=== PATIENT | male | born 1965 | race Asian ===

== ENCOUNTER 2017-10-26 09:08 | Day surgery (SDC) | payer OTHER ==
[2017-10-26 09:36] VITALS: BMI 29.2
[2017-10-26 10:21] VITALS: TEMP 97.9
[2017-10-26 11:25] VITALS: BP 119/66; PULSE 80
--- NOTE | 2017-10-27 16:24 | PATH ---
Surgical Pathology Report Patient Name: ANA JESSICA [facility]. Rec. #: [id number] /Age/Gender: 1965 (Age: 51) / M Account: [id number] Location: U-ENDOSCOPY Taken: 10/26/2017 Received: 10/26/2017 Reported: 10/27/2017 Physicians: Maxim Belcher M.D. Specimen(s) Received A: RECTAL POLYP B: BX CECUM POLYP C: BX RIGHT COLON POLYP D: POLYP SIGMOID Clinical History Screening Postoperative diagnosis: Colon polyps, diverticulosis Final Diagnosis A. RECTUM, POLYP, POLYPECTOMY: HYPERPLASTIC POLYP. B. CECUM, POLYP, POLYPECTOMY: HYPERPLASTIC POLYP. C. COLON, RIGHT, POLYP, POLYPECTOMY: POLYPOID COLONIC MUCOSA WITH PROMINENT LYMPHOID AGGREGATE AND SUPERFICIAL HYPERPLASTIC FEATURES. D. SIGMOID COLON, POLYP, POLYPECTOMY: POLYPOID COLONIC MUCOSA WITH PROMINENT LYMPHOID AGGREGATE AND FOCAL SUPERFICIAL HYPERPLASTIC FEATURES. Electronically Signed Lluú Sullivan M.D. Gross Description A. Received in formalin, labeled "polyp rectum" is a carrasco, irregular portion of soft tissue measuring 0.3 cm. in greatest dimension. The specimen is submitted in toto in one cassette. B. Received in formalin, labeled "polyp cecum" are 4 carrasco, irregular portions of soft tissue ranging from 0.2-0.3 cm. in greatest dimension. The specimens are submitted in toto in one cassette. C. Received in formalin, labeled "polyp right colon" are 2 carrasco, irregular portions of soft tissue measuring 0.2 and 0.7 cm. in greatest dimension. The specimens are submitted in toto in one cassette. D. Received in formalin, labeled "polyp sigmoid" are 3 carrasco, irregular portions of soft tissue ranging from 0.2-0.4 cm. in greatest dimension. The specimens are submitted in toto in one cassette. 10/26/2017 saudi10/26/2017
== END 2017-10-26 11:25 | disposition home or self-care (01) ==
LOC: JASU-ENDO 09:08
PROVIDERS: ATTEND Internal Medicine Gastroenterology
PROC: 0DBN8ZX Excision of Sigmoid Colon, Via Natural or Artificial Opening Endoscopic, Diagnostic (ICD-10-PCS; 2017-10-26)
PROC: 0DBP8ZX Excision of Rectum, Via Natural or Artificial Opening Endoscopic, Diagnostic (ICD-10-PCS; 2017-10-26)
PROC: 0DBH8ZX Excision of Cecum, Via Natural or Artificial Opening Endoscopic, Diagnostic (ICD-10-PCS; 2017-10-26)
PROC: 0DBK8ZX Excision of Ascending Colon, Via Natural or Artificial Opening Endoscopic, Diagnostic (ICD-10-PCS; principal; 2017-10-26 10:00)
DX: Z12.11 Encounter for screening for malignant neoplasm of colon (principal); K59.00 Constipation, unspecified; K63.5 Polyp of colon; D12.2 Benign neoplasm of ascending colon; D12.5 Benign neoplasm of sigmoid colon; I10 Essential (primary) hypertension; N40.0 Benign prostatic hyperplasia without lower urinary tract symptoms; K57.30 Diverticulosis of large intestine without perforation or abscess without bleeding; K64.8 Other hemorrhoids
CPT/HCPCS: 88305-TC

== ENCOUNTER 2020-10-14 04:22 | Day surgery (SDC) | payer OTHER ==
[2020-10-13 12:19] VITALS: BMI 30.2
[2020-10-14] MEDS ORDERED: PROPOFOL 20 ML ONE ×2 (11:19)
[2020-10-14] MEDS ORDERED: ceFAZolin SODIUM 1 GM VIAL ONE (11:24)
[2020-10-14] MEDS ORDERED: ceFAZolin SODIUM 1 GM VIAL IVPB ONE (11:26)
[2020-10-14 12:59] VITALS: PULSE 72; TEMP 98.6
[2020-10-14] MEDS ORDERED: ONDANSETRON 4 MG/2 ML VIAL IVPUSH PRN (13:33)
[2020-10-14 13:38] VITALS: BP 118/80
[2020-10-14] MEDS ORDERED: LACTATED RINGERS SOLUTION 1,000 ML IV SCH (13:45)
== END 2020-10-14 13:39 | disposition home or self-care (01) ==
LOC: JASU-SURG 04:22
PROVIDERS: ATTEND Urology
PROC: 0TF4XZZ Fragmentation in Left Kidney Pelvis, External Approach (ICD-10-PCS; principal; 2020-10-14 11:00)
DX: N20.0 Calculus of kidney (principal); E11.9 Type 2 diabetes mellitus without complications; I10 Essential (primary) hypertension
CPT/HCPCS: 82962

== ENCOUNTER 2022-05-14 04:30 | Day surgery (SDC) | payer OTHER ==
[2022-05-12 11:41] VITALS: BMI 29.9
[2022-05-14 11:40] VITALS: RESP 18
[2022-05-14 12:26] VITALS: BP 127/73; PULSE 79; TEMP 98
== END 2022-05-14 12:30 | disposition home or self-care (01) ==
LOC: JASU-ENDO 04:30
PROVIDERS: ATTEND Internal Medicine Gastroenterology
PROC: 0D5N8ZZ Destruction of Sigmoid Colon, Via Natural or Artificial Opening Endoscopic (ICD-10-PCS; 2022-05-14)
PROC: 0D5M8ZZ Destruction of Descending Colon, Via Natural or Artificial Opening Endoscopic (ICD-10-PCS; 2022-05-14)
PROC: 0DB98ZX Excision of Duodenum, Via Natural or Artificial Opening Endoscopic, Diagnostic (ICD-10-PCS; 2022-05-14)
PROC: 0DB78ZX Excision of Stomach, Pylorus, Via Natural or Artificial Opening Endoscopic, Diagnostic (ICD-10-PCS; 2022-05-14)
PROC: 0DB68ZX Excision of Stomach, Via Natural or Artificial Opening Endoscopic, Diagnostic (ICD-10-PCS; 2022-05-14)
PROC: 0DB48ZX Excision of Esophagogastric Junction, Via Natural or Artificial Opening Endoscopic, Diagnostic (ICD-10-PCS; 2022-05-14)
PROC: 0D5K8ZZ Destruction of Ascending Colon, Via Natural or Artificial Opening Endoscopic (ICD-10-PCS; principal; 2022-05-14 11:00)
DX: Z12.11 Encounter for screening for malignant neoplasm of colon (principal); D12.2 Benign neoplasm of ascending colon; D12.4 Benign neoplasm of descending colon; D12.5 Benign neoplasm of sigmoid colon; K57.30 Diverticulosis of large intestine without perforation or abscess without bleeding; K21.00 Gastro-esophageal reflux disease with esophagitis, without bleeding; K44.9 Diaphragmatic hernia without obstruction or gangrene; K29.00 Acute gastritis without bleeding; K29.80 Duodenitis without bleeding; Z86.010 Personal history of colon polyps
CPT/HCPCS: 82962; 88305-TC; 88342-TC